=== PATIENT | female | born 1980 | race Caucasian/White ===

== ENCOUNTER → 2018-08-05 | Outpatient (CLI) | payer OTHER | LOC: M SMT 09:02 | PROVIDERS: ATTEND Specialist | DX: O09.512 Supervision of elderly primigravida, second trimester (principal); Z3A.00 Weeks of gestation of pregnancy not specified ==

== ENCOUNTER → 2018-09-11 | Outpatient (CLI) | payer BC | LOC: M SMT 09:26 | PROVIDERS: ATTEND Specialist | DX: O09.521 Supervision of elderly multigravida, first trimester (principal); Z3A.00 Weeks of gestation of pregnancy not specified ==

== ENCOUNTER → 2018-09-15 | Outpatient (CLI) | payer BC ==
--- NOTE | 2018-09-16 03:34 | REP ---
Clinical: Anatomical evaluation. Comparison: None . Findings: Examination demonstrates a single live intrauterine in transverse (head to maternal right) presentation. motion is identified by technologist. Placenta is noted posterior and grade zero without evidence for placenta previa or abruption. Amniotic fluid volume is normal. Cervix measures 5.0 cm in length and appears closed. No evidence for nuchal cord. Gestational age by LMP 21 weeks 2 days with VINCENZO 01/24/2019 . Gestational age by current measurements 21 weeks 2 days with VINCENZO 01/24/2019 . FHR equals 150 beats per minute. BPD 4.9 cm 20 weeks 6 days HC 18.1 cm 20 weeks 3 days AC 16.1 cm 21 weeks 1 day FL 3.8 cm 22 weeks 1 day HL 3.5 cm 22 weeks 0 days HC/AC ratio 1.12 Estimated weight 427 grams ( 52nd percentile). Anatomical assessment demonstrates normal structures including cranium, choroid plexus, cavum, cerebellum/posterior fossa, facial features, lungs, four-chamber heart/ventricular outflow tracts, diaphragm, stomach, cord insertion/three-vessel cord, kidneys/bladder, spine, and extremities. Impression: Single live intrauterine in transverse lie demonstrating appropriate interval growth. Anatomical assessment is complete and normal. No gross abnormalities are identified. Electronically Signed by Kashif Osuna MD 09/16/2018 03:24 A
== END ==
LOC: M RAD 13:29
PROVIDERS: ATTEND Specialist
DX: O09.522 Supervision of elderly multigravida, second trimester (principal); O32.2XX0 Maternal care for transverse and oblique lie, not applicable or unspecified; Z3A.21 21 weeks gestation of pregnancy

== ENCOUNTER → 2018-10-29 | Outpatient (REF) | payer BC | LOC: M LABDRWAD 19:07 | PROVIDERS: ATTEND Specialist | DX: Z34.82 Encounter for supervision of other normal pregnancy, second trimester (principal); Z3A.00 Weeks of gestation of pregnancy not specified ==

== ENCOUNTER → 2018-12-29 | Outpatient (REF) | payer BC | LOC: M LAB REF 17:06 | PROVIDERS: ATTEND Specialist | DX: O09.523 Supervision of elderly multigravida, third trimester (principal); Z3A.00 Weeks of gestation of pregnancy not specified ==

== ENCOUNTER 2019-01-09 06:44 | Inpatient (IN) | payer BC ==
[2019-01-09] VITALS (32 sets, daily range): BP systolic 85–130; BP diastolic 46–80
[~2019-01-09] VITALS: Ht 157.5 cm; Wt 74.6 kg
[2019-01-09] MEDS ORDERED: PRENTAB9 PO (07:28)
[2019-01-09] MEDS: LR 1,000 ML IV SCH ×2 (07:47→10:05)
[2019-01-09] MEDS: PROMETHAZINE INJ 25 MG/ML VIAL (J2550) IV ONE ×2 (07:47→09:00)
[2019-01-09 08:00] LABS: HEMATOCRIT 35.6 % (36.0-47.0); HEMOGLOBIN 11.6 g/dl (12.0-15.5); MEAN CORPUSCULAR HEMOGLOBIN 28.4 pg (27.0-33.0); MEAN CORPUSCULAR HGB CONC 32.6 g/dl (32.0-36.5); MEAN CORPUSCULAR VOLUME 87.3 fl (80.0-96.0); PLATELET COUNT, AUTOMATED 225 10^3/uL (150-450); RED BLOOD COUNT 4.08 10^6/uL (4.00-5.40); WHITE BLOOD COUNT 12.2 10^3/uL (4.0-10.0)
[2019-01-09] MEDS ORDERED: FENTANYL 2MCG/ML ROPIVACAINE 0.2% IN 0.9% NACL 100ML IVBAG As Ordered ONE (08:39)
[2019-01-09] MEDS ORDERED: BUTORPHANOL 2 MG/ML INJ (J0595) IV ONE (09:00)
[2019-01-09] MEDS ORDERED: LACTATED RINGER'S 1000 ML IV PRN (10:15)
[2019-01-09] MEDS ORDERED: REFRIGERATOR IV KEYS XX PRN (10:15)
[2019-01-09] MEDS ORDERED: ePHEDrine SULFATE 25 MG/5 ML(5MG/ML) SYRINGE IV PRN (10:15)
[2019-01-09] MEDS ORDERED: FENTANYL/ROPIVACAINE/NACL BAG 100 ML EPIDURAL SCH (10:15)
[2019-01-09] MEDS ORDERED: diphenhydrAMINE INJ 50MG/ML VIAL (J1200) IV PRN (10:15)
[2019-01-09] MEDS ORDERED: ONDANSETRON 4MG/2ML VIAL (J2405) IV PRN (10:15)
[2019-01-09] MEDS ORDERED: NALOXONE INJ 0.4 MG/1 ML VIAL (J2310) IV PRN (10:15)
[2019-01-09] MEDS ORDERED: EPIDURAL COMMENT XX SCH (10:15)
[2019-01-09] MEDS ORDERED: EPIDURAL/PCA KEYS XX PRN (10:15)
[2019-01-09] MEDS ORDERED: OXYTOCIN 30 UNITS IN 0.9% NaCl 500ML IV BAG (J2590) As Ordered ONE ×2 (10:34→11:01)
[2019-01-09] MEDS ORDERED: OXYTOCIN DRIP 30 UNITS in APPROPRIATE DILUENT 1 EA IV SCH (11:34)
[2019-01-09] MEDS ORDERED: ANUSOL HC CREAM 30GM TOP PRN (11:45)
[2019-01-09] MEDS ORDERED: ACETAMINOPHEN 500 MG TAB PO PRN (11:45)
[2019-01-09] MEDS ORDERED: METHYLERGONOVINE MALEATE 0.2 MG TAB PO PRN (11:45)
[2019-01-09] MEDS ORDERED: DIBUCAINE 1% OINTMENT 30GM TOP PRN (11:45)
[2019-01-09] MEDS ORDERED: DOCUSATE SODIUM 100 MG CAP PO PRN (11:45)
[2019-01-09] MEDS ORDERED: RHOGAM 300 MCG (1500 IU) INJ (J2790) IM SCH (11:45)
[2019-01-09] MEDS ORDERED: MEASLES,MUMPS,RUBELLA VACCINE INJ (MMR-II) (90707) SC SCH (11:45)
[2019-01-09] MEDS ORDERED: IBUPROFEN 600 MG TAB PO PRN (11:45)
[2019-01-09] MEDS ORDERED: ACETAMINOPHEN TAB 650MG DOSE (2X325MG) PO PRN (11:45)
[2019-01-09] MEDS: IBUPROFEN 800 MG TAB PO PRN (13:05)
[2019-01-09] MEDS ORDERED: SLF 3 ML SYR IV PRN (13:15)
[2019-01-09] MEDS: SLF 3 ML SYR IV SCH ×2 (14:00→19:43)
--- NOTE | 2019-01-09 16:18 | HPE ---
DATE OF ADMISSION: 01/09/2019 Patient is a 38-year-old female who is a 1, para 1-1-0-2 at 38 weeks gestation with an estimated date of delivery (VINCENZO) of 01/24/2019 based off of her last menstrual period (LMP) and consistent with her first-trimester ultrasound. Her has been complicated by a history of delivery at 35 weeks and advanced maternal age. She presents to labor and delivery with complaints of spontaneous rupture of membranes at 0300. She reports clear fluid. She denies vaginal bleeding. She reports contractions that are painful. PAST MEDICAL HISTORY: Chronic yeast infections. SURGICAL HISTORY: Appendectomy. FAMILY HISTORY: Heart disease. SOCIAL HISTORY: Patient is . She is not a smoker. She has no history of alcohol or illicit drug use prior to or during . She has no history of sexually transmitted infections. ALLERGIES: No known drug allergies but allergic to metals. CURRENT MEDICATIONS: vitamins. PAST PREGNANCIES: May 2002 at 35 weeks she had a vaginal delivery of a living male weighing 4 pounds 4 ounces. In February 2006 she had a living male at 37 weeks, weighing 3033 grams with no complications. LABORATORIES: Blood type is O positive. Her hemoglobin and hematocrit in her first trimester were 12.1 and 35.9 with platelets of 267. Rubella was immune. Her VDRL is nonreactive. Her urine culture had no growth. Her hepatitis B surface antigen was negative. HIV was negative. Hepatitis C is nonreactive. Gonorrhea and chlamydia are both negative. She had noninvasive testing (NIPT). Testing showed a normal female with low risk of trisomy 21, 18, 13. Her 1-hour glucose tolerance test was 95. Her GBS is negative. PHYSICAL ASSESSMENT: GENERAL: Alert and oriented times three. RESPIRATORY: Regular rate with no use of accessory muscles between contractions. ABDOMEN: Gravid and nontender to touch. Contractions palate moderate. Cephalic presentation noted through bedside ultrasound. VITAL SIGNS: Blood pressure 112/64, heart rate is 94, respiratory rate is 16, oxygen saturation is 100%, and her temperature is 97.9. Sterile vaginal exam: 3 cm dilated, 100% effaced, -2 station, and grossly ruptured. heart rate is 150 beats per minute with moderate variability, positive accelerations, and no decelerations Contractions every 3-6 minutes. ASSESSMENT: Intrauterine (IUP) at 38 weeks gestation, spontaneous rupture of membranes, active labor, GBS negative, category 1 heart rate tracing. PLAN: Admit patient to labor and delivery. Saline lock and labs per unit protocol. Out of bed ad dai. Clear liquid diet. Anticipate cervical change and spontaneous vaginal delivery. Patient requesting something for intravenous (IV) pain medication. Stadol ordered, as patient does desire an epidural. Lactated Ringer's 800 mL bolus to be given prior to epidural.
[2019-01-10] MEDS: IBUPROFEN 800 MG TAB PO PRN ×2 (03:08→12:10)
[2019-01-10 06:00] VITALS: BP 103/61
[2019-01-10] MEDS: SLF 3 ML SYR IV SCH (06:00)
[2019-01-10] MEDS: PRENATAL VITAMINS CHEWABLE TABLET PO SCH (09:08)
[2019-01-10 18:09] VITALS: BP 116/66
[2019-01-11] MEDS: IBUPROFEN 800 MG TAB PO PRN (05:28)
[2019-01-11 06:00] VITALS: BP 112/68
[2019-01-11] MEDS: PRENATAL VITAMINS CHEWABLE TABLET PO SCH (08:37)
--- NOTE | 2019-01-11 15:39 | DN ---
DATE: 01/09/2019 TIME OF DELIVERY: 11:15 a.m. STATUS: Delivered. Spontaneous vaginal delivery. PROVIDER: Digna Prince CNM, WHNP ANESTHESIA: Epidural. ESTIMATED BLOOD LOSS: 250 mL. FINDINGS: Female, 6 pounds, 15 ounces, 3160 grams, score 8/9. The patient is a 38-year-old female who is now a 3, para 2-1-0-3, who presented to labor and delivery at 38 weeks gestation with spontaneous rupture of membranes and in active labor. She received an epidural for her pain management. She progressed to fully dilated at 10:54 and pushed a living female at 11:15 in the occiput anterior (OA) position, restitution to right occiput transverse (ROT). The anterior shoulder delivered with ease and the corpus immediately followed. The baby was placed on maternal abdomen, active and crying with stimulation. The cord was clamped times two after pulsation ceased and cut by the father of the baby. A three vessel cord was noted. The placenta delivered spontaneously and intact at 11:20. A marginal cord insertion was noted. The uterine hemostasis was achieved via rapid infusion of IV Pitocin and fundal massage. The perineum, cervix and vagina were inspected and found to have a perineal abrasion that was not repaired. Mom plans to breast fed her daughter. They plan on naming her [place]. Both mom and baby are in stable condition. All counts of instruments and sponges are correct.
== END 2019-01-11 11:25 | disposition home or self-care (01) | DRG 560 ==
LOC: M LDO 06:44 → M LDI 07:28 → M OBS 14:12
PROVIDERS: ADMIT Specialist; ATTEND Advanced Practice Midwife
PROC: 10E0XZZ Delivery of Products of Conception, External Approach (ICD-10-PCS; principal; 2019-01-09)
DX: O80 Encounter for full-term uncomplicated delivery (principal); Z3A.38 38 weeks gestation of pregnancy; Z37.0 Single live birth

== ENCOUNTER → 2022-11-23 | Outpatient (CLI) | payer BC ==
[~2022-11-23] MED LIST: PRENTAB9 PO
== END ==
LOC: M WHC 09:13
PROVIDERS: ATTEND Nurse Practitioner Family
DX: N93.0 Postcoital and contact bleeding (principal); R10.2 Pelvic and perineal pain; Z97.5 Presence of (intrauterine) contraceptive device

== ENCOUNTER → 2023-12-04 | Outpatient (CLI) | payer BC | LOC: M WHC 10:58 | PROVIDERS: ATTEND Obstetrics & Gynecology | DX: Z12.31 Encounter for screening mammogram for malignant neoplasm of breast (principal); R92.343 Mammographic extreme density, bilateral breasts; R92.8 Other abnormal and inconclusive findings on diagnostic imaging of breast ==

== ENCOUNTER → 2024-01-01 | Outpatient (CLI) | payer BC, SELFPAY | LOC: M WHC 09:03 | PROVIDERS: ATTEND Obstetrics & Gynecology | DX: Z12.31 Encounter for screening mammogram for malignant neoplasm of breast (principal) ==

== ENCOUNTER → 2024-02-20 | Outpatient (REF) | payer BC ==
[2024-02-20 14:12] LABS: BASO # 0.1 10^3/uL (0.0-0.2); BASO % 0.8 % (0.0-1.0); EOS # 0.4 10^3/uL (0.0-0.5); EOS % 5.3 % (0.0-3.0); HEMATOCRIT 42.4 % (36.0-47.0); HEMOGLOBIN 13.7 g/dl (12.0-15.5); LYMPH # 1.6 10^3/uL (1.5-5.0); LYMPH % 21.2 % (24.0-44.0); MEAN CORPUSCULAR HEMOGLOBIN 29.7 pg (27.0-33.0); MEAN CORPUSCULAR HGB CONC 32.3 g/dl (32.0-36.5); MONO # 0.5 10^3/uL (0.0-0.8); MONO % 7.1 % (2.0-8.0); NEUTROPHILS # 4.9 10^3/uL (1.5-8.5); NEUTROPHILS % 65.5 % (36.0-66.0); PLATELET COUNT, AUTOMATED 266 10^3/uL (150-450); RED BLOOD COUNT 4.61 10^6/uL (4.00-5.40); WHITE BLOOD COUNT 7.5 10^3/uL (4.0-10.0)
[2024-02-20 14:35] LABS: ALBUMIN 4.4 G/DL (3.2-5.2); ALKALINE PHOSPHATASE 56 U/L (46-116); ALT/SGPT 12 U/L (7.0-40); AST/SGOT 9 U/L (<34); BILIRUBIN,TOTAL 0.9 MG/DL (0.3-1.2); BLOOD UREA NITROGEN 13 MG/DL (9-23); CALCIUM LEVEL 9.9 MG/DL (8.5-10.1); CARBON DIOXIDE LEVEL 26 MMOL/L (20-31); CHLORIDE LEVEL 108 MMOL/L (98-107); CHOLESTEROL LEVEL 242 MG/DL (<200); CHOLESTEROL RISK RATIO 3.54 (<5); CREATININE FOR GFR 0.72 MG/DL (0.55-1.30); GLOMERULAR FILTRATION RATE > 60.0 (>58); GLUCOSE, FASTING 82 MG/DL (60-100); HDL CHOLESTEROL 68.2 MG/DL (>40); NON-HDL-C 173.8 MG/DL; POTASSIUM SERUM 4.6 MMOL/L (3.5-5.1); SODIUM LEVEL 139 MMOL/L (136-145); TOTAL PROTEIN 7.3 G/DL (5.7-8.2); TRIGLYCERIDES LEVEL 64 MG/DL (<150)
[2024-02-20 14:36] LABS: FREE T4 1.43 NG/DL (0.89-1.76); THYROID STIMULATING HORMONE 1.396 uIU/ML (0.55-4.78)
== END ==
LOC: M SFHCADAM 10:09
PROVIDERS: ATTEND Physician Assistant
DX: E78.00 Pure hypercholesterolemia, unspecified (principal); L40.9 Psoriasis, unspecified; L90.0 Lichen sclerosus et atrophicus; R00.0 Tachycardia, unspecified

== ENCOUNTER → 2024-07-28 | Outpatient (CLI) | payer BC | LOC: M SOG 07:47 | PROVIDERS: ATTEND Physician Assistant | DX: M25.532 Pain in left wrist (principal) ==

== ENCOUNTER → 2024-08-21 | Outpatient (CLI) | payer BC | LOC: M PLARAD 09:16 | PROVIDERS: ATTEND Physician Assistant | DX: M67.432 Ganglion, left wrist (principal) ==

== ENCOUNTER 2024-09-18 06:52 | Day surgery (SDC) | payer BC ==
[~2024-09-18] VITALS: Ht 157.5 cm; Wt 54.4 kg
[~2024-09-18 06:52] MED LIST changes: +CLOB0.057 TOP; +PROBCAP14 PO; +THERTAB52 PO
[2024-09-18] MEDS ORDERED: KETOROLAC 30 MG/ML 1ML VIAL As Ordered ONE (08:07)
[2024-09-18] MEDS ORDERED: ONDANSETRON 4MG 2ML VIAL As Ordered ONE (08:07)
[2024-09-18] MEDS ORDERED: LIDOCAINE 2% 100MG/5ML SDV (FOR ANES.) As Ordered ONE (08:07)
[2024-09-18] MEDS ORDERED: propofoL 200 MG/20 ML VIAL As Ordered ONE (08:07)
[2024-09-18] MEDS ORDERED: fentaNYL 100 MCG/2 ML INJECTION As Ordered ONE (08:07)
[2024-09-18] MEDS ORDERED: LR 1,000 ML IV SCH ×2 (08:25→09:40)
[2024-09-18] MEDS: ceFAZolin SODIUM 2 GM VIAL As Ordered ONE (08:38)
[2024-09-18] MEDS: ceFAZolin SOD 2 GM IV ONCE IV ONE (08:59)
[2024-09-18] MEDS: BACITRACIN OINTMENT 30GM TUBE As Ordered ONE (09:16)
[2024-09-18] MEDS ORDERED: ONDANSETRON 4MG 2ML VIAL IV PRN (09:40)
[2024-09-18] MEDS ORDERED: HYDROMORPHONE HCL 0.5 MG/ 0.5 ML SYRINGE IV PRN (09:40)
[2024-09-18] MEDS ORDERED: fentaNYL 100 MCG/2 ML INJECTION IV PRN (09:40)
[2024-09-18] MEDS ORDERED: oxyCODONE 5MG TAB PO PRN (09:40)
[2024-09-18 10:39] VITALS: BP 128/68; TEMP 98.8; O2SAT 100
== END 2024-09-18 11:00 | disposition home or self-care (01) ==
LOC: M SDC 06:52
PROVIDERS: ATTEND Orthopaedic Surgery Hand Surgery
DX: M67.432 Ganglion, left wrist (principal)
CPT/HCPCS: 25111; 81025; 88305; J0665; J0690; J1885; J2405; J3010